=== PATIENT | female | born 1990 | race Two or more races ===

== ENCOUNTER 2025-02-28 07:45 | Emergency (ER) | payer BC, SELFPAY ==
[2025-02-28 07:45] VITALS: BMI 28.8
[2025-02-28 08:00] VITALS: BP 105/71; PULSE 69; RESP 18; TEMP 36.4; O2SAT 100
--- NOTE | 2025-02-28 08:21 | PD.EDRME ---
Rapid Medical Screening Exam RME Arrival date/time: 02/28/25 07:45 Chief Complaint: Dizziness Vital signs: Vital Signs Temperature 97.5 F 02/28/25 08:00 Pulse Rate 69 02/28/25 08:00 Respiratory Rate 18 02/28/25 08:00 Blood Pressure 105/71 02/28/25 08:00 Pulse Oximetry (%) 100 02/28/25 08:00 Oxygen Delivery Method Room Air 02/28/25 08:00 Pulse ox is 100% room air Vital signs reviewed by provider: Yes RME Narrative: Patient upon getting out of bed yesterday morning developed dizziness, patient tells me the room was spinning around her and then sleeping on her left side made it worse.
--- NOTE | 2025-02-28 08:26 | XR_ITS ---
Examination: CT brain head without contrast. 2-D sagittal coronal reconstructions Date and time of exam:February 28, 2025 0835 hours INDICATIONS: Dizziness episodes today CTDI: vol (mGy):47.4 DLP: (mGycm):929 Technique: Multiple CT axial sections of the brain have been obtained, 5 mm slice thickness. Contrast has not been administered. 2-D sagittal, coronal reconstructions have been obtained Low dose protocols were performed. One or more of the following dose reduction techniques were used; automated exposure control, adjustment of the mA and/or KV according to patient size, use of iterative reconstruction technique. Findings: No significant ventricular enlargement. Intra-axial or extra-axial hemorrhage density is not seen. No mass effect or midline shift Basal cisterns are not remarkable. Fourth ventricle is midline. Cranial vault intact. Impression: Negative for acute hemorrhage, mass effect or midline shift Advise clinical correlation follow-up accordingly
[2025-02-28 08:46] LABS: Basophils # (Auto) 0.0 Thou/mm3 (0.0-0.2); Basophils % (Auto) 0 % (0-2.5); Eosinophils # (Auto) 0.2 Thou/mm3 (0.0-0.5); Eosinophils % (Auto) 2 % (0-10); Hematocrit 39.0 % (36.0-46.0); Hemoglobin 13.2 g/dL (12.0-16.0); Immature Granulocytes Auto 0.03 Thou/mm3 (0.00-0.00); Lymphocytes # (Auto) 1.3 Thou/mm3 (1.0-4.8); Lymphocytes % (Auto) 11 % (10-50); Mean Corpuscular HGB Conc 33.8 g/dl (31.0-37.0); Mean Corpuscular Hemoglobin 28.4 pg (25.0-35.0); Mean Corpuscular Volume 84 fL (80-100); Monocytes # (Auto) 0.5 Thou/mm3 (0.0-0.8); Monocytes % (Auto) 4 % (0-12); Neutrophils # (Auto) 9.3 Thou/mm3 (1.8-7.7); Neutrophils % (Auto) 83 % (37-80); Nucleated Red Blood Cell # 0.00 Thou/mm3 (0.00-0.00); Nucleated Red Blood Cell % 0 /100 WBC (0); Platelet Count 317 Thou/mm3 (140-440); RDW Standard Deviation 43.3 fL (36.4-46.3); Red Blood Count 4.64 Miln/mm3 (4.00-5.20); White Blood Count 11.3 Thou/mm3 (3.6-11.0)
[2025-02-28 09:02] LABS: Collection Type, Urine Clean Catch
[2025-02-28 09:05] LABS: Alanine Aminotransferase 18 U/L (10-49); Albumin, Serum 4.6 gm/dL (3.5-5.0); Albumin/Globulin Ratio 1.7 (1.2-2.2); Alkaline Phosphatase 74 U/L (46-116); Anion Gap 10 (7-16); Aspartate Amino Transferase 21 U/L (0-34); BUN/Creatinine Ratio 14 Ratio (12-20); Bilirubin,Total 0.5 mg/dL (0.3-1.2); Blood Urea Nitrogen 10 mg/dL (9-23); Calcium 9.6 mg/dL (8.3-10.6); Calcium (Corrected) 9.6 mg/dL (8.5-10.1); Carbon Dioxide 24.0 mMol/L (20.0-31.0); Chloride 108 mMol/L (98-107); Creatinine (Component) 0.7 mg/dL (0.6-1.3); Estimated Creatinine Clearance 131.4 mL/min (>60); Globulin 2.7 gm/dL (2.3-3.5); Glucose 97 mg/dL (74-106); Osmolality,Calculated 282 (275-295); Potassium 4.1 mMol/L (3.4-5.1); Sodium 142 mMol/L (136-145); Total Protein 7.3 gm/dL (5.7-8.2); eGFR > 60 See Note
[2025-02-28 09:14] LABS: Bacteria,Urine Rare; Bilirubin,Urine Negative (Negative); Blood,Urine Negative (Negative); Clarity,Urine Clear (Clear/Hazy); Color,Urine Yellow (Lt Yel-Yel); Culture Indicated,Urine Not Indicated; Glucose, Urine Negative (Negative); Ketones,Urine Negative (Negative); Leukocyte Esterase,Urine Negative (Negative); Nitrite,Urine Negative (Negative); PH,Urine 8.0 (5.0-7.0); Protein,Urine Negative (Neg - Trace); RBC,Urine 2 /hpf (0-3); Specific Gravity,Urine 1.028 (1.001-1.035); Squamous Epithelial Cell,Urine 12 /hpf (0-5); Urobilinogen,Urine Negative mg/dL (0.0-1.0); WBC,Urine 4 /hpf (0-5)
[2025-02-28 10:42] VITALS: BP 149/77; PULSE 108; RESP 18; TEMP 36.4; O2SAT 96
--- NOTE | 2025-02-28 11:16 | PC.NURSE ---
CALLED PATIENT IN THE LOBBY AND OUTSIDE FOR MEDICATION, NO ANSWER RECEIVED.
--- NOTE | 2025-02-28 11:39 | PC.NURSE ---
CALLED FROM LOBBY AND NO ANSWER
[2025-02-28] MEDS: ONDANSETRON ODT 4 MG TABRAP PO (12:10)
--- NOTE | 2025-02-28 12:43 | PD.EDDIZZY ---
ED Dizzyness RME/HPI General Chief Complaint: Dizziness Stated Complaint: DIZZY/NAUSEA SINCE YESTERDAY Time Seen by Provider: 02/28/25 12:36 Arrival date/time: 02/28/25 07:45 Limitations: no limitations RME / HPI RME / HPI Narrative: Patient is a 34-year-old female who is currently taking a weight loss medication. She has no other chronic medical disease. She states she woke up yesterday and had dizziness as worse when standing up. She describes this as the room spinning around her. She has had no falls prior or after this. She denies any history of diabetes. She has no history of thrombus. She has no vision changes. She denies any chest pain or shortness of breath. No lower leg edema. She has no other acute complaints. Related Data Previous Rx's ?Medication ?Instructions ?Recorded meclizine 25 mg tablet 25 mg PO TID #20 tabs 02/28/25 meclizine 25 mg tablet 25 mg PO TID PRN dizziness #20 tabs 02/28/25 ondansetron 4 mg disintegrating 4 mg PO QDAY PRN nausea and 02/28/25 tablet vomiting 5 days #10 tabs ondansetron HCl 4 mg tablet 4 mg PO QDAY PRN nausea and 02/28/25 vomiting 3 days #10 tabs Allergies Allergy/AdvReac Type Severity Reaction Status Date / Time amoxicillin Allergy Severe RASH Verified 02/28/25 07:47 cephalexin Allergy Severe rash Verified 02/28/25 07:47 Penicillins Allergy Severe rash hives Verified 02/28/25 07:47 Review of Systems Review of Systems Systems Reviewed: All systems reviewed, normal except as documented ED Exam General Limitations: Present no limitations General appearance: Present alert and in no apparent distress Head Head exam: Present atraumatic Eye Eye exam: Present normal appearance, PERRL and EOMI ENT ENT exam: Present normal exam, normal oropharynx and mucous membranes moist Neck Neck exam: Present normal inspection, full ROM and trachea midline Chest Chest inspection: Present normal inspection and symmetric chest wall rise Respiratory Respiratory exam: Present normal lung sounds bilaterally Cardiovascular Cardiovascular exam: Present regular rate, normal rhythm and normal heart sounds Abdominal Exam Abdominal exam: Present soft and normal bowel sounds Extremities Exam Extremities exam: Present normal inspection and full ROM Back Exam Back exam: Present normal inspection and full ROM Neurological Exam Neurological exam: Present alert and oriented X3 Psychiatric Psychiatric exam: Present normal affect and normal mood Skin Skin exam: Present warm, dry, intact and normal color Other Other exam information: Hallpike maneuvers are negative. Patient had increased dizziness while sitting up. Course Course Course Narrative: Patient had increased dizziness while sitting up. Orthostatic vital signs were requested. A bolus of saline and meclizine was also requested. Quality Measures none Orders Category Date Time Status Orthostatic Vitals X1 Care 02/28/25 12:[address] head/brain wo con Stat Exams 02/28/25 08:26 Completed CBC Stat Lab 02/28/25 08:30 Completed CMP [Comprehensive Metabolic Panel] Stat Lab 02/28/25 08:30 Completed UA, C/S IF [Urinalysis, C/S if Indicated] Stat Lab 02/28/25 08:45 Completed Meclizine HCl [Antivert] Med 02/28/25 12:43 Discontinued 25 mg PO X1 ONE Ondansetron Odt [Zofran Odt] Med 02/28/25 10:47 Discontinued 4 mg PO X1 ONE Sodium Chloride 0.9% 1000 ml [Ns] 1,000 ml Med 02/28/25 12:43 Discontinued IV 999 mls/hr Vital Signs Vital signs: Vital Signs Temperature 97.5 F 02/28/25 08:00 Pulse Rate 69 02/28/25 08:00 Respiratory Rate 18 02/28/25 08:00 Blood Pressure 105/71 02/28/25 08:00 Pulse Oximetry (%) 100 02/28/25 08:00 Oxygen Delivery Method Room Air 02/28/25 08:00 Dizziness Patient data External records reviewed:: None Clinical information provided by:: patient Social determinants that could affect healthcare access:: none Patient has the following chronic illnesses:: N/A How is presenting disease/condition affected by chronic disease/condition?: no chronic disease Evaluation data The following diagnostics were reviewed and interpreted by me:: lab results (No leukocytosis or anemia. No metabolic derangement. No UTI) Lab and/or radiology exams considered but not ordered:: N/A Interpretation Summary: Unremarkable workup Medications / Prescriptions Medications or Prescriptions considered but not ordered:: N./A Medication administrations:: Medication Administration History Discontinued Medications Sodium Chloride (Ns) 1,000 mls @ 999 mls/hr IV .Q1H1M ONE Stop: 02/28/25 13:43 Last Infusion: 02/28/25 15:40 Dose: Infused Documented By: Admin: 02/28/25 14:18 Dose: 999 mls/hr Documented By: SERGE Meclizine HCl (Meclizine Hcl 25 Mg Tablet) 25 mg PO X1 ONE Stop: 02/28/25 12:44 Last Admin: 02/28/25 12:54 Dose: 25 mg Documented By: SHAYLEE Ondansetron HCl (Ondansetron Odt 4 Mg Tabrap) 4 mg PO X1 ONE; Protocol Stop: 02/28/25 10:48 Last Admin: 02/28/25 12:10 Dose: 4 mg Documented By: SHAYLEE See above Consultations Consultation(s) initiated? (list below): No Diagnosis Most likely diagnosis given after review of the tests above:: Vertigo, orthostatic dizziness Admission Indicated Admission indicated?: not indicated Admission Request Was there a request for admission?: No Disposition Plan Disposition Plan: Discharge Discharge Attestation Discharge Attestation: The patient and all family members were given an opportunity to ask questions and understood the discharge instructions. Discharge instructions specifically effects, indications for sooner follow up or return to the emergency department, and the expected course of current diagnosis. Patient condition: Stable Discharge Plan Plan Patient Disposition: HOME (Self Care) Patient condition on transfer: Stable Prescriptions/Referrals Prescriptions/Med Rec: New ondansetron HCl 4 mg tablet 4 mg PO QDAY PRN (Reason: nausea and vomiting) 3 Days Qty: 10 0RF meclizine 25 mg tablet 25 mg PO TID PRN (Reason: dizziness) Qty: 20 0RF meclizine 25 mg tablet 25 mg PO TID Qty: 20 0RF ondansetron 4 mg tablet,disintegrating 4 mg PO QDAY PRN (Reason: nausea and vomiting) 5 Days Qty: 10 0RF Referrals: Tony Baltazar MD [Primary Care Provider] - In 1 week Problem List Clinical Impression: Orthostatic dizziness Patient/Caregiver Discharge Instructions Education Materials: Dizziness Fainting Poss Causes Additional Instructions: - Use the provided medications as prescribed. - Increase oral hydration. - Follow-up with your primary clinic this week for recheck. - Return here as needed for any worsening or emergent changes. Print Language: Frisian Stand Alone Forms: Cecelia Award Info., Work/School Release, Patient Portal Info Letter
[2025-02-28] MEDS: MECLIZINE HCL 25 MG TABLET PO (12:54)
[2025-02-28 13:06] VITALS: BP 112/72; BP 114/78; BP 116/81; PULSE 64; PULSE 69; PULSE 89
[2025-02-28] MEDS: SODIUM CHLORIDE 0.9% 1000 ML 1,000 ML 999 ML IV (14:18)
[2025-02-28 15:50] VITALS: BP 120/83; PULSE 81; RESP 17; TEMP 36.3; O2SAT 100
== END 2025-02-28 17:03 | disposition home or self-care (01) ==
PROVIDERS: Physician Assistant; Emergency Provider Family Medicine; PCP Emergency Medicine
DX: R42 Dizziness and giddiness (principal)
CPT/HCPCS: 36415; 70450; 80053; 81001; 85025; 99284; J7030; Q0162; A9270